=== PATIENT | female | born 1990 | race Caucasian/White ===

== ENCOUNTER 2021-12-22 11:31 | Outpatient (CLI) | payer OTHER | END 2021-12-22 11:32 | disposition home or self-care (01) | LOC: LABBT 11:31 | PROVIDERS: ATTEND Neurological Surgery | DX: Z20.822 Contact with and (suspected) exposure to COVID-19 (principal) | CPT/HCPCS: 87811 ==

== ENCOUNTER 2021-12-26 09:54 | Day surgery (SDC) | payer OTHER ==
[2021-12-24 14:28] VITALS: BMI 34.7
[2021-12-26] MEDS ORDERED: Midazolam HCl 2 mg/2 ml Vial ONE (12:28)
[2021-12-26] MEDS ORDERED: Fentanyl 100 MCG/2 ML VIAL ONE (13:06)
[2021-12-26] MEDS ORDERED: Ketorolac Tromethamine 30 MG/ML VIAL ONE (13:15)
[2021-12-26] MEDS ORDERED: PROPOFOL 200 MG/20 ML VIAL ONE (13:15)
[2021-12-26] MEDS ORDERED: Meperidine HCl/PF 25 MG/ML VIAL ONE (13:48)
== END 2021-12-26 15:00 | disposition home or self-care (01) ==
LOC: MRI 09:54
PROVIDERS: ATTEND Neurological Surgery
DX: M51.16 Intervertebral disc disorders with radiculopathy, lumbar region (principal); M48.061 Spinal stenosis, lumbar region without neurogenic claudication; M51.37 Other intervertebral disc degeneration, lumbosacral region; M48.07 Spinal stenosis, lumbosacral region; F17.290 Nicotine dependence, other tobacco product, uncomplicated; E78.5 Hyperlipidemia, unspecified; F40.240 Claustrophobia; Z88.5 Allergy status to narcotic agent; Z88.8 Allergy status to other drugs, medicaments and biological substances; Z91.018 Allergy to other foods
CPT/HCPCS: 72148; J1885; J2175; J2250; J2704; J3010

== ENCOUNTER 2022-02-03 06:58 | Outpatient (CLI) | payer OTHER | END 2022-02-03 06:59 | disposition home or self-care (01) | LOC: LABBT 06:58 | PROVIDERS: ATTEND Neurological Surgery | DX: Z20.822 Contact with and (suspected) exposure to COVID-19 (principal) | CPT/HCPCS: 87811 ==

== ENCOUNTER 2022-02-06 05:49 | Day surgery (SDC) | payer OTHER ==
[2022-02-05 09:20] VITALS: BMI 34.8
[2022-02-06] MEDS ORDERED: Ketamine 50 MG/ML (10ML VIAL) ONE (06:24)
[2022-02-06] MEDS ORDERED: Thrombin 5000 UNITS/5 ML VIAL ONE (06:24)
[2022-02-06] MEDS ORDERED: Bupivacaine HCl 0.5%/Epinephrine 1:200,000/PF 30 ml Vial ONE (06:24)
[2022-02-06] MEDS ORDERED: fentaNYL Citrate/PF 100 MCG/2 ML SYRINGE ONE (06:24)
[2022-02-06] MEDS ORDERED: Midazolam HCl 2 mg/2 ml Vial ONE (06:24)
[2022-02-06] MEDS ORDERED: Famotidine/PF 20 mg/2ml Vial ONE (06:25)
[2022-02-06] MEDS ORDERED: CEFAZOLIN 2 GM VIAL ONE ×2 (06:54→10:31)
[2022-02-06] MEDS ORDERED: Sodium Chloride 0.9% 100 ML ONE ×2 (06:54→10:31)
[2022-02-06] MEDS ORDERED: Glycopyrrolate 0.2 MG/ML 5 ML SYRINGE ONE (07:03)
[2022-02-06] MEDS ORDERED: NEOSTIGMINE 3 MG/3 ML SYR 3 MG/3 ML SYRINGE ONE (07:03)
[2022-02-06] MEDS ORDERED: Phenylephrine 10 MG/ML VIAL ONE (07:03)
[2022-02-06] MEDS ORDERED: Dexamethasone 20 MG/5 ML VIAL ONE (07:03)
[2022-02-06] MEDS ORDERED: Rocuronium Bromide 10 MG/ML (10ML VIAL) ONE (07:03)
[2022-02-06] MEDS ORDERED: PROPOFOL 200 MG/20 ML VIAL ONE (07:03)
[2022-02-06] MEDS ORDERED: Ondansetron PF 4 MG/2 ML Vial ONE (07:03)
[2022-02-06] MEDS ORDERED: Lidocaine 1% MPF 2 ML VIAL ONE (07:03)
[2022-02-06] MEDS ORDERED: Meperidine HCl/PF 25 MG/ML VIAL ONE (08:39)
[2022-02-06] MEDS ORDERED: Fentanyl 100 MCG/2 ML VIAL ONE (08:47)
[2022-02-06] MEDS ORDERED: Promethazine HCl 25 MG/ML VIAL ONE (08:49)
== END 2022-02-06 10:56 | disposition home or self-care (01) ==
LOC: SDC 05:49
PROVIDERS: ATTEND Neurological Surgery
PROC: 01NB0ZZ Release Lumbar Nerve, Open Approach (ICD-10-PCS; principal; 2022-02-06)
DX: M54.16 Radiculopathy, lumbar region (principal); G89.29 Other chronic pain; Z79.899 Other long term (current) drug therapy; Z88.5 Allergy status to narcotic agent; Z88.6 Allergy status to analgesic agent; Z91.018 Allergy to other foods
CPT/HCPCS: 76000; J0690; J2175; J2250; J2550; J3010; J3490; S0028